=== PATIENT | female | born 1990 | race Caucasian/White ===

== ENCOUNTER → 2017-09-14 | Outpatient (CLI) | payer OTHER ==
[~2017-09-14] MED LIST: PEDICHW50 PO
[2017-09-14 12:44] LABS: BASO % 0.3 %; BASO ABS # 0.02 K/uL (0-0.2); COMPLETE YES; EOS % 0.7 %; HEMATOCRIT 38.8 % (37-47); IG% 0.2 %; LYMPH % 14.2 %; LYMPH ABS # 0.83 K/uL (1.2-3.4); MEAN CELL VOLUME 84.7 fL (80-100); MEAN CORPUSCULAR HEMOGLOBIN 29.3 pg (25-34); MEAN CORPUSCULAR HGB CONC 34.5 g/dl (32-36); MEAN PLATELET VOLUME 9.5 fL (7.4-10.4); MONO % 13.4 %; NEUT % 71.2 %; PLATELET COUNT 171 K/uL (130-400); RED BLOOD COUNT 4.58 M/uL (4.2-5.4); WHITE BLOOD COUNT 5.84 K/uL (4.8-10.8)
[2017-09-14 13:15] LABS: BLOOD UREA NITROGEN 6 mg/dl (7-18); BUN/CREATININE RATIO 8.2 (10-20); CALCIUM 8.6 mg/dl (8.5-10.1); CARBON DIOXIDE 24 mmol/L (21-32); CHLORIDE 107 mmol/L (98-107); CREATININE 0.71 mg/dl (0.60-1.20); GLUCOSE 83 mg/dl (70-99); POTASSIUM 3.9 mmol/L (3.5-5.1); SODIUM 138 mmol/L (136-145)
== END | disposition home or self-care (01) ==
LOC: C.LABPVFM 08:53
PROVIDERS: ATTEND Family Medicine Adult Medicine
DX: R20.2 Paresthesia of skin (principal)

== ENCOUNTER 2018-12-26 19:08 | Inpatient (IN) ==
[2018-12-26] MEDS ORDERED: LACTATED RINGER'S 1,000 ML IV PRN ×2 (19:48→22:20)
[2018-12-26] MEDS ORDERED: OXYTOCIN 30 UNITS/500 ML BAG IV PRN ×2 (19:48→22:20)
[2018-12-26] MEDS ORDERED: LACTATED RINGER'S 1,000 ML IV SCH (20:00)
--- NOTE | 2018-12-26 20:03 | History & Physical Report ---
Date of Service December 26, 2018 Assessment & Plan (1) 39 weeks gestation of : admit, iv, labs. fhts reassuring. (2) Amniotic fluid leaking: small leak, can arom forebag if still present at next exam. (3) PROM (premature rupture of membranes): will give 4-6hr from rom to see if ctx pattern develops (4) Rh negative status during : rhogam eval pp History of Present Illness Chief Complaint: leaking fluid since 520pm Primary Care Provider: QI Castro 27yo at 39+wks ega presents to L&D with above cc. Some ctx, getting closer. [place] discharge. +FM. pnc c/b 1. rh neg pnl rh neg, gbs neg, ri obh: x 2 gynh: nl paps, no stds pmh: neg psh: wisdom teeth allg: nkda meds: pnv, iron, pepcid sh: no tob/etoh/drugs fh: no khalif anom or mr Allergies Allergy/AdvReac Type Severity Reaction Status Date / Time No Known Drug Allergies Allergy Unknown n/a Verified 03/21/16 06:21 Home Medications Home Medications Medication Instructions Recorded Confirmed Type PEDIATRIC MULTIPLE VITAMIN W/ 1 tab PO QAM #0 tab 03/21/16 History ([place] CHEWABLE) Patient History Social History marital status: Smoking Status: Never smoker Do You Dip or Chew Tobacco: No Second Hand Exposure: No Tobacco Cessation Education Requested by Patient: No Hx Alcohol Use: No Hx Substance Use: No Review of Systems per hpi Physical Exam 2 Vital Signs (Past 24 Hours): Last Vital Signs Pulse 126 H 12/26/18 19:16 BP 121/78 12/26/18 19:16 Constitutional: WD/WN, vitals as above Gastrointestinal (Abdomen): soft gravid nt Musculoskeletal: no edema Neurologic: grossly normal Genitourinary: Manual OB Exam: + cervical dilation 2 cm, + cervical effacement 70%, + station -2 and + amniotic fluid (SSE, no pool noted. and palp bag) nitrazine positive and ferning present OB Exam Monitor Tracing: + external FHT monitor used (mod variability, 130 ), + external uterine monitor used (q5), + category I and + normal FHT variability
[2018-12-26 20:22] LABS: Hematocrit (blood only) 35.8 % (37-47); Mean Corpuscular Volume 84.2 fL (80-100); Mean Platelet Volume 9.2 fL (7.4-10.4); Platelet Count 212 K/uL (130-400); RDW Coefficient of Variation 15.4 % (11.5-14.5); Red Blood Count 4.25 M/uL (4.2-5.4); White Blood Count 12.59 K/uL (4.8-10.8)
[2018-12-26 20:23] LABS: Mean Corpuscular Hgb Conc 33.5 g/dL (32-36)
--- NOTE | 2018-12-26 22:23 | Obstetrical Progress Note ---
Date of Service December 26, 2018 Assessment & Plan (1) 39 weeks gestation of : (2) PROM (premature rupture of membranes): if no labor pattern after 4-6hr from rom, pt accepts pitocin. has declined rupture of previously examined forebag but more fluid has been seen since then. Subjective pt has been walking intermittently and per nurse no real changes. Physical Exam 2 Vital Signs (Past 24 Hours): Last Vital Signs Temp 36.7 C 12/26/18 21:26 Pulse 97 H 12/26/18 21:26 BP 119/68 12/26/18 21:26 Genitourinary: OB Exam Monitor Tracing: + external FHT monitor used (130 moderate variability), + external uterine monitor used (q4) and + category I
--- NOTE | 2018-12-27 00:18 | Obstetrical Progress Note ---
Date of Service December 27, 2018 Assessment & Plan (1) 39 weeks gestation of : (2) PROM (premature rupture of membranes): c/ w pit, after regular pattern for about 2hr consider exam. fhts reassuring. Subjective sitting up in bed, states ctx are stronger and longer. Physical Exam 2 Vital Signs (Past 24 Hours): Last Vital Signs Temp 36.7 C 12/26/18 23:32 Pulse 101 H 12/27/18 00:02 BP 109/70 12/27/18 00:02 Constitutional: WD/WN, vitals as above Genitourinary: OB Exam Monitor Tracing: + external FHT monitor used (120 mod variability), + external uterine monitor used (irreg), + category I and + normal FHT variability efw 7.5#. pit at 3
[2018-12-27] MEDS ORDERED: BUPIVACAINE 0.25% 30 ML VIAL ONE (01:09)
[2018-12-27] MEDS ORDERED: ePHEDrine sulfate 50 MG/ML AMP ONE (01:10)
[2018-12-27] MEDS ORDERED: fentaNYL citrate 100 MCG/2 ML VIAL ONE (01:10)
[2018-12-27] MEDS ORDERED: fentaNYL 2MCG/ML ROPIV 1.25MG/ML 100 ML BAG EPI ONE (01:10)
[2018-12-27] MEDS ORDERED: NALOXONE HCL 0.4 MG/1 ML VIAL/CARP IV PRN (02:15)
[2018-12-27] MEDS ORDERED: LACTATED RINGER'S 1,000 ML IV PRN (02:15)
[2018-12-27] MEDS ORDERED: NALOXONE HCL 1 MG in SODIUM CHLORIDE 0.9% 1000ML 1,000 ML IV PRN (02:15)
[2018-12-27] MEDS ORDERED: fentaNYL 2MCG/ML ROPIV 1.25MG/ML 100 ML BAG EPI PRN (02:15)
[2018-12-27] MEDS ORDERED: ePHEDrine sulfate 50 MG/ML AMP IV PRN (02:15)
[2018-12-27] MEDS ORDERED: DiphenhydrAMINE HCL 50 MG/ML VIAL IV PRN (02:15)
[2018-12-27] MEDS ORDERED: NALBUPHINE HCL INJ 10 MG/ML AMP IV PRN (02:15)
--- NOTE | 2018-12-27 02:29 | Obstetrical Progress Note ---
Date of Service December 27, 2018 Assessment & Plan (1) 39 weeks gestation of : (2) PROM (premature rupture of membranes): will keep pit off, fhts categ 1 now. anticipate soon. Subjective called to see pt due to decel to 90s. pt comfortable with epidural. Physical Exam 2 Vital Signs (Past 24 Hours): Last Vital Signs Temp 36.7 C 12/26/18 23:32 Pulse 93 H 12/27/18 02:24 BP 105/58 L 12/27/18 02:24 Pulse Ox 93 12/27/18 02:20 Constitutional: WD/WN, vitals as above Genitourinary: Manual OB Exam: + cervical dilation 9 cm, + cervical effacement 100% and + station 0 OB Exam Monitor Tracing: + external FHT monitor used (115 mod variability, +scalp stim response), + external uterine monitor used (q2-3 ), + category I and + normal FHT variability pit off
--- NOTE | 2018-12-27 03:34 | Delivery Summary ---
DATE OF OPERATION: 12/27/2018 The patient dilated to complete and pushed to deliver a viable female infant, Apgars 8 and 9 via over second degree perineal laceration. Mouth and nose bulb suctioned at the perineum. The shoulders and body delivered with ease. vigorous and crying at . Cord was clamped at 30 seconds of life and placed on maternal abdomen, where the cord was then doubly clamped and cut. Placenta was delivered spontaneously intact, 3-vessel cord. Hemostasis achieved with dilute Pitocin and uterine massage. Cervix and sulci intact. Laceration repaired in the routine fashion using 3-0 Vicryl and important to mention perineal body tissue was built up with a series of continuous sutures during that repair. EBL 300 mL. Mother and baby stable in recovery. I attest to the content of the Intraoperative Record and any orders documented therein. Any exception s are noted below.
[2018-12-27] MEDS ORDERED: ACETAMINOPHEN 325 MG TAB PO PRN (04:53)
[2018-12-27] MEDS ORDERED: OXYTOCIN 20 UNITS in LACTATED RINGER'S 1,000 ML IV SCH (04:53)
[2018-12-27] MEDS ORDERED: OXYCODONE/ACETAMINOPHEN 5mg/325mg TAB PO PRN (04:53)
[2018-12-27] MEDS ORDERED: HYDROCORTISONE ACETATE 25 MG SUPP PR PRN (04:53)
[2018-12-27] MEDS ORDERED: BENZOCAINE 20% AER SPR 82.5 GM CAN EXT PRN (04:53)
[2018-12-27] MEDS ORDERED: OXYTOCIN 30 UNITS/500 ML BAG IV PRN (04:53)
[2018-12-27] MEDS ORDERED: SUPERCREAM 0.870% 15 GM JAR EXT PRN (04:53)
[2018-12-27] MEDS ORDERED: IBUPROFEN 600 MG TAB PO ONE (05:15)
[2018-12-27] MEDS ORDERED: BENZOCAINE 20% AER SPR 82.5 GM CAN EXT ONE (05:16)
--- NOTE | 2018-12-27 07:41 | Anesthesia Procedure Note ---
Date of Service December 27, 2018 Anesthesia Post Epidural Note Vital Signs Vital Signs: Temp Pulse Pulse Resp BP BP Pulse Ox 12/27/18 05:45 36.4 C L 101 H 18 124/76 12/27/18 05:15 18 12/27/18 05:13 98 H 121/60 12/27/18 05:00 93 H 114/58 L 12/27/18 04:46 93 H 116/59 L 12/27/18 04:30 99 H 117/67 12/27/18 04:15 104 H 18 117/71 12/27/18 04:00 93 H 18 122/70 12/27/18 03:46 93 H 18 113/69 12/27/18 03:16 92 H 127/72 12/27/18 03:10 97 H 97 12/27/18 03:05 128 H 92 12/27/18 03:03 107 H 94 12/27/18 03:00 107 H 95 12/27/18 02:55 104 H 115/61 94 12/27/18 02:51 93 H 109/61 12/27/18 02:50 89 93 12/27/18 02:48 93 H 100/57 L 12/27/18 02:45 90 99/54 L 91 12/27/18 02:42 82 102/58 L 12/27/18 02:40 85 91 12/27/18 02:39 91 H 105/57 L 12/27/18 02:36 105 H 98/54 L 12/27/18 02:35 95 H 91 12/27/18 02:33 94 H 100/56 L 12/27/18 02:30 96 H 97/56 L 92 12/27/18 02:27 98 H 103/60 12/27/18 02:25 98 H 94 12/27/18 02:24 93 H 105/58 L 12/27/18 02:21 106 H 101/61 12/27/18 02:20 111 H 93 12/27/18 02:19 101 H 101/56 L 12/27/18 02:16 98 H 102/45 L 12/27/18 02:15 102 H 92 12/27/18 02:10 103 H 94 12/27/18 02:09 91 H 122/57 L 12/27/18 02:08 111 H 94 12/27/18 02:06 102 H 120/57 L 12/27/18 02:05 107 H 96 12/27/18 02:03 123 H 125/78 94 12/27/18 02:00 91 H 119/65 97 12/27/18 01:57 86 122/66 12/27/18 01:55 110 H 100 12/27/18 01:53 93 H 92 12/27/18 01:52 89 117/71 12/27/18 01:50 125 H 74 L 12/27/18 01:48 95 H 137/85 12/27/18 01:47 104 H 92 12/27/18 01:45 106 H 100 12/27/18 01:33 80 135/77 12/27/18 01:02 95 H 122/75 12/27/18 00:32 96 H 114/73 12/27/18 00:02 101 H 109/70 12/26/18 23:32 36.7 C 96 H 131/73 12/26/18 21:26 36.7 C 97 H 119/68 12/26/18 20:48 36.7 C 97 H 119/68 12/26/18 19:16 126 H 121/78 Pain Intensity Abdomen: Pain Intensity: 4 Notes Mental Status: alert / awake / arousable and participated in evaluation Nausea / Vomiting: adequately controlled Pain: adequately controlled Airway Patency, RR, SpO2: stable & adequate BP & HR: stable & adequate Hydration State: stable & adequate Neuraxial Anesthesia: was administered and sensory block is resolving Anesthetic Complications: no major complications apparent and Pt Satisfied with anesthetic care Epidural: Removed without complications and With tip intact
[2018-12-27] MEDS: DOCUSATE SODIUM 100 MG CAP PO SCH ×2 (09:15→20:03)
[2018-12-27] MEDS: PRENATAL VITAMIN 1 TAB PO SCH (09:15)
[2018-12-27] MEDS: IBUPROFEN 600 MG TAB PO PRN ×2 (12:59→23:56)
[2018-12-28 00:41] VITALS: O2SAT 97
--- NOTE | 2018-12-28 06:47 | Obstetrical Progress Note ---
Date of Service <Raul Estrada MD - Last Filed: 12/28/18 06:49> December 28, 2018 Assessment & Plan <Raul Estrada MD - Last Filed: 12/28/18 06:49> (1) Vaginal delivery: Jus is a 27yo at 39+wks ega who presented to L&D with PROM, now s/p PPD#2. - Rh negative*. GBS negative. RI. - Baby is O+, rhogam prior to d/c. Anti-D profile ordered. - Feels well today. Eating well, voiding well, ambulating well. - Pain well controlled with ibuprofen 600mg Q4H PRN. - Routine post care - After discharge will have [address] Parker. - Discharge counseling provided. Anticipate home today. (2) Rh negative status during : (3) PROM (premature rupture of membranes): (4) 39 weeks gestation of : Subjective <Raul Estrada MD - Last Filed: 12/28/18 06:49> Ambulation: ambulating normally Voiding: no voiding problems Passing Gas:: Yes Diet Tolerance:: regular diet Lochia:: Small Feeding Type:: breast feeding Current Pain Level(1-10): 3 (improved with motrin) Review of Systems Denies fever, chills, sweats Denies shortness of breath, difficulty breathing, chest pain, palpitations, chest pressure. Denies breast pain. Denies dysuria. Denies headache. Physical Exam <Raul Estrada MD - Last Filed: 12/28/18 06:49> Vital Signs (Past 24 Hours) Last Vital Signs Temp 36.6 C 12/27/18 23:50 Pulse 90 12/27/18 23:50 Resp 16 12/27/18 23:50 BP 113/69 12/27/18 23:50 Pulse Ox 97 12/27/18 23:50 General: Alert, oriented. No acute distress. Cardiac: Regular rate and rhythm, no murmurs/rubs/gallops. Respiratory: Clear to auscultation anterior and posteriorly, no wheezes/rales/ rhonchi. No increased work of breathing. Symmetrical chest rise. No respiratory distress. Abdomen: Soft, nontender, nondistended. Bowel sounds present. Uterus: Uterine fundus firm, palpable 2cm below umbilicus. Lower Extremities: Trace swelling in the R ankle, otherwise no lower extremity edema or swelling. No deep calf pain. Mary's negative bilaterally. <Galo Hickman MD, FACOG - Last Filed: 12/28/18 06:50> Co-Signing Physician Notes Resident Physician Supervision Note: I interviewed and examined the patient. Discussed with Dr. Estrada and agree with findings and plan as documented in the note. Any exceptions or clarifications are listed here: [None] Documented By: Galo Hickman MD, FACOG Resident Activity Tracking <Raul Estrada MD - Last Filed: 12/28/18 06:49> Resident Involvement: Resident Care Provided Care Provided: Adult Hospital Medicine
[2018-12-28] MEDS: PRENATAL VITAMIN 1 TAB PO SCH (08:29)
[2018-12-28] MEDS: DOCUSATE SODIUM 100 MG CAP PO SCH (08:30)
[2018-12-28] MEDS ORDERED: DIPHTHERIA/TETANUS/PERTUSSIS 0.5 ML SYR/VIAL IM ONE (09:00)
[2018-12-28 09:25] VITALS: BP 116/78; PULSE 87; TEMP 98.4
== END 2018-12-28 13:35 | disposition home or self-care (01) | DRG 806 ==
LOC: OPB 19:08 → 4S1 19:09 → 4S2 12-27 05:40

== ENCOUNTER 2021-02-15 01:02 | Inpatient (IN) ==
[2021-02-15] MEDS ORDERED: LACTATED RINGER'S 1,000 ML IV PRN (01:08)
--- NOTE | 2021-02-15 01:12 | Labor Progress Brief Note ---
Date of Service February 15, 2021 Subjective with [facility] @ 39w6d presents with painful contractions. no LOF, no VB, good FM. Assessment & Plan (1) Normal labor and delivery: Admit, epidural if possible, exp mgmt of labor, anticipate . GBS neg. Physical Exam Physical Exam: 8100/0 bulging intact bag FHT Cat 1 [place] Q2 based on very limited tracing Coding Level of Care Code None Diagnoses Normal labor and delivery O80
[2021-02-15] MEDS ORDERED: SODIUM CHLORIDE 0.9% INJ 10 ML VIAL ONE (01:18)
[2021-02-15] MEDS ORDERED: fentaNYL citrate 100 MCG/2 ML VIAL ONE (01:18)
[2021-02-15] MEDS ORDERED: ePHEDrine sulfate 50 MG/ML AMP ONE (01:18)
[2021-02-15] MEDS ORDERED: BUPIVACAINE 0.25% 30 ML VIAL ONE (01:18)
[2021-02-15] MEDS ORDERED: fentaNYL 2MCG/ML ROPIVACAINE 1.25MG/ML 100 ML BAG EPI ONE (01:19)
[2021-02-15 01:33] LABS: Hematocrit (blood only) 33.3 % (37-47); Hemoglobin 11.1 g/dL (12.0-16.0); Mean Corpuscular Hemoglobin 26.7 pg (25-34); Mean Corpuscular Volume 80.2 fL (80-100); Mean Platelet Volume 9.5 fL (7.4-10.4); Platelet Count 224 K/uL (130-400); RDW Coefficient of Variation 14.1 % (11.5-14.5); RDW Standard Deviation 41.1 fL (36.4-46.3); Red Blood Count 4.15 M/uL (4.2-5.4); White Blood Count 10.11 K/uL (4.8-10.8)
--- NOTE | 2021-02-15 01:38 | Anesthesiology Consultation ---
Date of Service February 15, 2021 Assessment & Plan (1) Encounter for pre-operative examination: Chart Review Chart Review: Acceptable Risk for Surgery and Patient NOT seen in Pre Admission Testing Consults Requested none History Allergies Allergy/AdvReac Type Severity Reaction Status Date / Time No Known Drug Allergies Allergy Unknown n/a Verified 02/09/21 14:31 Medications Home Medications Medication Instructions Recorded Confirmed Last Taken prenat.vits,steve,grv-yryy-ivcnd 1 tab PO DAILY 03/10/20 02/09/21 Unknown ondansetron HCl 4 mg tablet 4 mg PO Q4H PRN #20 tab 07/01/20 02/09/21 Unknown Past Medical History Medical History 39 weeks gestation of 40 weeks gestation of Acute sinus infection Amniotic fluid leaking Encounter for pre-operative examination GERD (gastroesophageal reflux disease) DURING Hernia Influenza B Normal labor PROM (premature rupture of membranes) Rh negative status during Sleep apnea CHILD Spontaneous in first trimester Vaginal delivery Varicella Ventral hernia Vision problem Past Family History Family History Mother Hypertension Anxiety Gallbladder disease Grandmother Cancer Stroke Grandmother (Maternal) Ovarian cancer Father Alcohol abuse Other Anemia Family history of uterine leiomyoma Heart murmur Kidney disease Denies family history of Prostate cancer Myocardial infarction Breast cancer Colorectal cancer Past Surgical History Surgical History History of tooth extraction History of ventral hernia repair (08/21/19) Ventral Hernia Repair Dr. Jeronimo 08/21/19 Hx of hand surgery LEFT - THORN REMOVAL Social History Smoking Status: Never smoker Hx Alcohol Use: No Hx Substance Use: No substance use type: does not use Physical Exam Vital Signs Last Vital Signs Pulse 102 H 02/15/21 01:31 BP 152/88 H 02/15/21 01:22 Pulse Ox 98 02/15/21 01:31 Testing Laboratory Results 02/15/21 01:23
[2021-02-15 01:46] LABS: Mean Corpuscular Hgb Conc 33.3 g/dL (32-36)
[2021-02-15] MEDS ORDERED: ONDANSETRON INJ 2 MG/ML 2 ML VIAL IV PRN (02:00)
[2021-02-15] MEDS ORDERED: fentaNYL 2MCG/ML ROPIVACAINE 1.25MG/ML 100 ML BAG EPI PRN (02:00)
[2021-02-15] MEDS ORDERED: NALOXONE HCL 1 MG in SODIUM CHLORIDE 0.9% 1000ML 1,000 ML IV PRN (02:00)
[2021-02-15] MEDS ORDERED: diphenhydrAMINE 50 MG/ML VIAL IV PRN (02:00)
[2021-02-15] MEDS ORDERED: ePHEDrine sulfate 50 MG/ML AMP IV PRN (02:00)
[2021-02-15] MEDS ORDERED: NALOXONE HCL 0.4 MG/1 ML VIAL/CARP IV PRN (02:00)
[2021-02-15] MEDS: OXYTOCIN 30 UNITS/500 ML BAG IV PRN ×2 (02:47→03:35)
--- NOTE | 2021-02-15 03:02 | Delivery Summary ---
Vaginal Delivery Summary Date of Service February 15, 2021 Vaginal Delivery Summary DIAGNOSES: 1. [place] intrauterine at 39w6d gestation. 2. Spontaneous onset of labor. 3. Group B Streptococcus Neg. PROCEDURE: Spontaneous vaginal delivery and repair of 1st degree laceration. SURGEON: Angle Huddleston MD. TRACTOR DRIVER TEAMSTER: None. ESTIMATED BLOOD LOSS: 250 mL. COMPLICATIONS: None. PLACENTA: Spontaneous and intact with a 3-vessel cord. DISPOSITION: Stable to labor and delivery. DESCRIPTION: The patient pushed well and brought the head to in OA position. The infant's head was allowed to deliver with contraction force and no further active pushing, with the perineum protected during this time. The shoulders delivered easily with a maternal pushing effort. There was a tight nuchal cord, reduced on the perineum. The body delivered without any difficulty, and the infant was placed on the maternal abdomen. It was vigorous and moving all extremities, and making respiratory efforts. The cord was doubly clamped by the MD and then cut by the FOB. The placenta delivered spontaneously and was noted to be intact and with a 3VC. The cervix, vagina and perineum were examined and were found to have a first degree perineal laceration which was repaired in running locked manner with vicryl suture. The fundus was firm and lochia minimal immediately after delivery. [facility] Vaginal Delivery Charge Vaginal Delivery Codes: 66006 global code for the antepartum, delivery, and post-
--- NOTE | 2021-02-15 03:09 | Anesthesia Procedure Note ---
Date of Service February 15, 2021 Anesthesia Post Epidural Note Vital Signs Vital Signs: Temp Pulse Resp BP Pulse Ox 36.8 C 93 H 16 118/69 91 02/15/21 01:13 02/15/21 03:04 02/15/21 02:05 02/15/21 03:04 02/15/21 02:48 Notes Mental Status: alert / awake / arousable and participated in evaluation Nausea / Vomiting: adequately controlled Pain: adequately controlled Airway Patency, RR, SpO2: stable & adequate BP & HR: stable & adequate Hydration State: stable & adequate Neuraxial Anesthesia: was administered and sensory block is resolving Anesthetic Complications: no major complications apparent and Pt Satisfied with anesthetic care Epidural: Removed without complications and With tip intact Notes: Epidural site clean, dry and intact. No signs of edema, erythema or bruising at insertion site.
[2021-02-15] MEDS ORDERED: HYDROCORTISONE ACETATE 25 MG SUPP PR PRN (03:22)
[2021-02-15] MEDS ORDERED: ACETAMINOPHEN 325 MG TAB PO PRN (03:22)
[2021-02-15] MEDS ORDERED: oxyCODONE/ACETAMINOPHEN 5mg/325mg TAB PO PRN (03:22)
[2021-02-15] MEDS ORDERED: SUPERCREAM 0.870% 15 GM JAR EXT PRN (03:22)
[2021-02-15] MEDS ORDERED: BENZOCAINE 20% AER SPR 82.5 GM CAN EXT PRN (03:22)
[2021-02-15] MEDS ORDERED: DIPHTHERIA/TETANUS/PERTUSSIS 0.5 ML SYR/VIAL IM ONE (03:22)
[2021-02-15] MEDS: DOCUSATE SODIUM 100 MG CAP PO SCH ×2 (07:35→21:30)
[2021-02-15] MEDS: PRENATAL VITAMIN 1 TAB PO SCH (07:35)
[2021-02-15] MEDS: IBUPROFEN 600 MG TAB PO PRN ×3 (12:04→21:30)
--- NOTE | 2021-02-16 05:07 | Obstetrical Progress Note ---
Date of Service <Nain Felder MD - Last Filed: 02/16/21 07:32> February 16, 2021 Assessment & Plan <Nain Felder MD - Last Filed: 02/16/21 07:32> (1) Normal labor and delivery: - PNL: Rh neg, RI, GBS neg, COVID neg - Feels well today. Eating well, voiding well, ambulating well - Pain well controlled with ibuprofen 600mg Q4H PRN - Routine care -- OOB, ambulation, diet progression as tolerated - After discharge will have 6 week follow-up with Dr. Huddleston Subjective <Nain Felder MD - Last Filed: 02/16/21 07:32> Jus is a 30 y/o female who is PPD #1 following at 41 weeks. She reports feeling well overall this morning. Some abdominal cramping and 1/10 pain well managed on analgesics. Voiding well. Tolerating meals overnight without difficulty. Patient has been able to ambulate some. Is passing gas and had a bowel movement. Has persistent lochia with some improvement this morning. Currently . Review of Systems Denies fever or chills. Denies shortness of breath or cough. Denies chest pain. Denies breast pain. Denies dysuria. Denies leg pain or leg swelling. Denies headache or changes in vision. Physical Exam <Nain Felder MD - Last Filed: 02/16/21 07:32> General: Alert, oriented. No acute distress. Cardiac: Regular rate and rhythm. No murmurs. Respiratory: Clear to auscultation bilaterally a/p, no wheezes/rales/rhonchi. No increased work of breathing. Symmetrical chest rise. No respiratory distress. Abdomen: Soft, nontender, nondistended. Bowel sounds present. Uterus: Uterine fundus firm, palpable ~1 cm below umbilicus. Lower Extremities: No lower extremity edema or swelling. No deep calf pain. Mary's negative bilaterally. Results & Data ([facility]) <Nain Felder MD - Last Filed: 02/16/21 07:32> Vital Signs (Past 12 Hours) Vital Signs Temp Pulse Resp BP Pulse Ox 02/15/21 23:00 36.4 C L 90 20 124/85 98 02/15/21 19:45 36.5 C 90 20 131/76 97 <Angle Huddleston MD - Last Filed: 02/16/21 08:01> Co-Signing Physician Notes Resident Physician Supervision Note: I interviewed and examined the patient. Discussed with Dr. Solano and agree with findings and plan as documented in the note. Any exceptions or clarifications are listed here: Documented By: Angle Huddleston MD, FACOG Resident Activity Tracking <Nain Felder MD - Last Filed: 02/16/21 07:32> Resident Involvement: Resident Care Provided Care Provided: OB Delivery
[2021-02-16 06:27] LABS: Hematocrit (blood only) 31.9 % (37-47); Hemoglobin 10.4 g/dL (12.0-16.0); Mean Corpuscular Hemoglobin 26.5 pg (25-34); Mean Corpuscular Hgb Conc 32.6 g/dL (32-36); Mean Corpuscular Volume 81.2 fL (80-100); Mean Platelet Volume 9.4 fL (7.4-10.4); Platelet Count 182 K/uL (130-400); RDW Coefficient of Variation 14.2 % (11.5-14.5); Red Blood Count 3.93 M/uL (4.2-5.4); White Blood Count 11.14 K/uL (4.8-10.8)
[2021-02-16] MEDS: DOCUSATE SODIUM 100 MG CAP PO SCH (09:30)
[2021-02-16] MEDS: PRENATAL VITAMIN 1 TAB PO SCH (09:30)
[2021-02-16] MEDS: IBUPROFEN 600 MG TAB PO PRN (10:53)
== END 2021-02-16 12:10 | disposition home or self-care (01) | DRG 807 ==
LOC: OPB 01:02 → 4S1 01:07 → 4S2 06:29